=== PATIENT | female | born 1960 | race Caucasian/White ===

== ENCOUNTER 2017-10-27 13:06 | Inpatient (IN) ==
[2017-10-27] MEDS ORDERED: Acetaminophen 325 MG Tablet PO ONE (13:49)
[2017-10-27] MEDS ORDERED: Ciprofloxacin 400 MG/200 ML 400 MG/200 ML PIGGYBACK IV.SIG ONE (13:55)
[2017-10-27 14:27] LABS: Baso % (Auto) 0.2 % (0.0-2.0); Hematocrit 42.1 % (35.0-46.0); Hemoglobin 14.7 gm/dL (11.6-15.3); Lymph # (Auto) 0.5 th/mm3 (1.0-4.8); Lymph % (Auto) 2.5 % (9.0-44.0); Mean Corpuscular HGB Conc 34.9 % (32.0-36.0); Mean Corpuscular Volume 91.6 fL (80.0-100.0); Mean Platelet Volume 9.5 fL (7.0-11.0); Neut % (Auto) 92.3 % (16.0-70.0); Platelet Count 136 th/mm3 (150-450); Red Cell Distribution Width 14.2 % (11.6-17.2); White Blood Count 20.6 th/mm3 (4.0-11.0)
[2017-10-27 14:36] LABS: INR 1.2 Ratio; Prothrombin Time 12.1 sec (9.8-11.6)
--- NOTE | 2017-10-27 14:42 | XR ---
EXAM DATE: 10/27/2017 2:39 PM EDT AGE/SEX: 57 years / Female INDICATIONS: . Fever for 4 days. CLINICAL DATA: This is the patient's initial encounter. Patient reports that signs and symptoms have been present for 4 - 6 days and indicates a pain score of 0/10. MEDICAL/SURGICAL HISTORY: Hypertension. Chronic obstructive pulmonary disease. None. COMPARISON: No prior exams available for comparison. FINDINGS: A single AP view of the chest demonstrates the lungs to be symmetrically aerated without evidence of mass, infiltrate or effusion. The cardiomediastinal contours are unremarkable. Osseous structures a re intact. CONCLUSION: No acute pulmonary infiltrates. Electronically signed by: Agus Caal MD 10/27/2017 2:41 PM EDT
[2017-10-27 14:43] LABS: Lipase 141 U/L (73-393)
[2017-10-27 15:30] LABS: Lymphocytes 4 % (9-44); Metamyelocytes 1 % (0-1); Monocytes 4 % (0-8)
[2017-10-27] MEDS ORDERED: Sod Chloride 0.9% Inj 1,000 ML IV.SIG SCH ×3 (15:30)
--- NOTE | 2017-10-27 15:31 | CT ---
EXAM DATE: 10/27/2017 2:57 PM EDT AGE/SEX: 57 years / Female INDICATIONS: Bilateral lower quadrant pain and vomiting. CLINICAL DATA: This is the patient's initial encounter. Patient reports that signs and symptoms have been present for 3 days and indicates a pain score of 8/10. MEDICAL/SURGICAL HISTORY: Chronic obstructive pulmonary disease. Hypertension. . Bowel surgery . RADIATION DOSE: 26.68 CTDI (mGy) COMPARISON: No prior exams available for comparison. TECHNIQUE: Multiple contiguous axial images were obtained through the abdomen. Images were obtained using multiple row detector helical technique. Using automated exposure control and adjustment of the mA and/or kV according to patient size, radiation dose was kept as low as reasonably achievable to o btain optimal diagnostic quality images. DICOM format image data is available electronically for rev iew and comparison. Lack of IV contrast limits the diagnosis for certain organ pathology. FINDINGS: Lower Lungs: The visualized lower lungs are clear. Liver: The liver has a homogeneous density without space-occupying lesion. There is no dilation of th e biliary tree. The liver is enlarged measuring 22.2 cm. The gallbladder is grossly unremarkable. Spleen: Homogeneous density. The spleen measures 17.1 cm.. Pancreas: Unremarkable without mass or calcification. Kidneys: Normal in size and shape. No evidence of mass or hydronephrosis. No calcified renal stones. Mild nonspecific perinephric edema. Adrenal Glands: Unremarkable. Aorta: The aorta and proximal iliac vessels are grossly unremarkable without aneurysmal dilation. Bowel/Mesentery: The bowel loops are grossly unremarkable.. No inflammatory changes. No free fluid o r loculated fluid collections. Abdominal Wall: There is an anterior abdominal wall hernia containing mesenteric fat. Retroperitoneum: A few nonspecific mildly prominent para-aortic lymph nodes are demonstrated. No def inite pelvic adenopathy. Bladder: Contours are smooth. Reproductive Organs: No abnormal masses or calcifications seen. Inguinal: The inguinal region is unremarkable without evidence of adenopathy. Bony Structures: Degenerative changes. CONCLUSION: 1. There is evidence of hepatosplenomegaly. 2. Mild nonspecific perinephric edema surrounding both kidneys. No hydronephrosis or calcified renal stones. 3. Midline anterior abdominal wall hernia containing mesenteric fat. 4. A few nonspecific mildly prominent para-aortic lymph nodes. Electronically signed by: Agus Caal MD 10/27/2017 3:29 PM EDT
[2017-10-27 15:32] LABS: Platelet Morphology Normal (Normal); RBC Morphology Normal (Normal)
--- NOTE | 2017-10-27 16:28 | ED ---
HPI General Chief Complaint: Abdominal Pain Stated Complaint: fever/vomitting Time Seen by Provider: 10/27/17 13:42 Source: patient, family and old records reviewed Mode of arrival: EMS Limitations: no limitations History of Present Illness HPI narrative: Patient is a 57-year-old female past medical history significant for hypertension, COPD presented complaining of vomiting lower abdominal pain for the past 4 days. She also has history of diverticulitis with resection in 2001. Patient says that her pain got worse today and she also had some diarrhea so she came in. She is also complaining of a headache. MD complaint: abdominal pain Onset (ago): day(s) (4) Pain Consistency: constant Location: LLQ and suprapubic Severity scale (1-10): 10 Quality: stabbing and burning Radiation: none Migration to: no migration Relieving factors: nothing Exacerbating factors: nothing Associated symptoms: nausea, vomiting, diarrhea, fever, chills and dysuria Related Data Home Medications Medication Instructions Recorded Confirmed omeprazole 20 mg PO DAILY 10/27/17 10/27/17 Allergies Allergy/AdvReac Type Severity Reaction Status Date / Time hydrocodone Allergy Nausea Verified 10/27/17 13:35 hydromorphone Allergy Nausea Verified 10/27/17 13:35 morphine Allergy Nausea Verified 10/27/17 13:35 naproxen [From Naprosyn] Allergy Nausea Verified 10/27/17 13:35 oxycodone Allergy Nausea Verified 10/27/17 13:35 Penicillins Allergy Nausea Verified 10/27/17 13:35 Review of Systems ROS Unobtainable All other systems reviewed negative except as stated in HPI Constitutional Denies fever(s) Eyes Denies change in vision ENT Denies headache(s) and Denies nasal congestion Cardiovascular Denies chest pain Respiratory Denies dyspnea Gastrointestinal Reports as per HPI, Reports abdominal pain, Reports cramping, Reports nausea and Reports vomiting Genitourinary Denies difficulty voiding Musculoskeletal Denies myalgias Integumentary/Breasts Denies rash Neurologic Reports headache(s) (6/10 throbbing) Psychiatric Denies depression Endocrine Denies polyuria Hematologic/Lymphatic Denies easy bruising [facility] Medical History Medical History COPD (chronic obstructive pulmonary disease) (Acute) Hypertension (Acute) Surgical History Surgical History History of bowel diversion surgery (Acute) Social History Social History Substance History: No History of Abuse Smoking Status: Former smoker How Often Do You Have a Drink Containing Alcohol: 2 to 4 times a month Recent Travel in [facility] within the Last 8 Weeks: No Recent Out of Country Travel within the Last 8 Weeks: No Immunization History Tetanus Immunization: Unsure Hx Influenza Vaccine This Season: No Exam Const General: cooperative, in distress (Mild from pain) moderate and ill appearing Nutritional Appearance: obese Orientation: alert, awake and oriented x3 HENMT Head: normocephalic and atraumatic Nose: no nasal discharge and no epistaxis Mouth: moist mucous membranes Eyes Sclera: normal sclerae Pupils: PERRL Neck Neck: trachea midline and no JVD Resp Effort & Inspection: no use of accessory muscles Auscultation: clear to auscultation bilaterally Cardio Rate: regular rate Rhythm: regular rhythm Heart Sounds: no murmurs GI Inspection: non-distended, obesity, striae, visible herniation and other ( TENDERNESS TO PALPATION OVER THE LOWER ABDOMEN) Palpation: soft, no hepatosplenomegaly, no pulsatile masses and nontender Skin General: dry skin (warm) Neuro General: alert and awake Cranial Nerves: other Speech: speech normal Motor: no movement abnormalities noted Extrem General: normal to inspection, no clubbing, no cyanosis and no edema Psych Mood: congruent mood Affect: normal affect Judgment: judgment good Course Reevaluation(s) Reevaluation #1: Patient is feeling little better after she was given fluids. Starting Cipro Flagyl for her infection. She did meet sepsis criteria on arrival. She was given IV fluids per sepsis protocol 30 cc/kg Cipro and Flagyl also initiated. CT abdomen pelvis was negative for acute diverticulitis however the patient appears to have UTI. Fever did resolve with medications. She will be admitted for urosepsis. Time: 13:50 Initial Documented Vital Signs Temperature 102.7 F H 10/27/17 13:14 Pulse Rate 130 H 10/27/17 13:14 Respiratory Rate 28 H 10/27/17 13:14 Blood Pressure 225/135 H 10/27/17 13:14 Pulse Oximetry 37 L 10/27/17 13:14 Last Documented Vital Signs Temperature 99.1 F 10/27/17 19:00 Pulse Rate 93 H 10/27/17 16:00 Respiratory Rate 17 10/27/17 19:00 Blood Pressure 134/72 10/27/17 19:00 Pulse Oximetry 97 10/27/17 19:00 Medical Decision Making Lab Data Lab results reviewed: Yes I reviewed the patient's lab results. Result diagrams: 10/27/17 14:00 Lab Results 10/27/17 10/27/17 10/27/17 Range/Units 14:00 14:00 14:00 WBC 20.6 H (4.0-11.0) th/mm3 RBC 4.60 (4.00-5.30) mil/mm3 Hgb 14.7 (11.6-15.3) gm/dL Hct 42.1 (35.0-46.0) % MCV 91.6 (80.0-100.0) fL MCH 32.0 (27.0-34.0) pg MCHC 34.9 (32.0-36.0) % RDW 14.2 (11.6-17.2) % Plt Count 136 L (150-450) th/mm3 MPV 9.5 (7.0-11.0) fL Prelim Diff (Auto) Slide review pending Neut % (Auto) 92.3 H (16.0-70.0) % Lymph % (Auto) 2.5 L (9.0-44.0) % [place] % (Auto) 5.0 (0.0-8.0) % Eos % (Auto) 0.0 (0.0-4.0) % Baso % (Auto) 0.2 (0.0-2.0) % Neut # (Auto) 19.0 H (1.8-7.7) th/mm3 Lymph # (Auto) 0.5 L (1.0-4.8) th/mm3 [place] # (Auto) 1.0 H (0.0-0.9) th/mm3 Eos # (Auto) 0.0 (0.0-0.4) th/mm3 Baso # (Auto) 0.0 (0.0-0.2) th/mm3 WBC Differential Manual diff final Seg Neuts % (Manual) 66 (16-70) % Band Neuts % (Manual) 25 H (0-6) % Lymphocytes % (Manual) 4 L (9-44) % Monocytes % (Manual) 4 (0-8) % Metamyelocytes % (Man) 1 (0-1) % Abs Neuts (Manual) 19.0 H (1.8-7.7) th/mm3 Differential Comment . Platelet Estimate Low L (Normal) Platelet Morphology Normal (Normal) RBC Morphology Normal (Normal) PT 12.1 H (9.8-11.6) sec INR 1.2 Ratio APTT 26.0 (24.3-30.1) sec Lactic Acid (0.4-2.0) mmol/L Troponin I Less than 0.02 L (0.02-0.05) ng/mL Lipase 141 (73-393) U/L Urine Color (Yellw/Straw) Urine Clarity (Clear) Urine pH (5.0-8.5) Ur Specific [place] (1.002-1.035) Urine Protein (Neg-Trace) mg/dL Urine Glucose (UA) (Negative) mg/dL Urine Ketones (Negative) mg/dL Urine Occult Blood (Negative) Urine Nitrate (Negative) Urine Bilirubin (Negative) Urine Urobilinogen (Less than 2) mg/dL Ur Leukocyte Esterase (Negative) Urine RBC (0-3) /hpf Urine WBC (0-5) /hpf Urine WBC Clumps (None) Ur Squamous Epith Cells (0-5) /hpf Urine Bacteria (None) /hpf Micro UA Comment Urine Culture Comments 10/27/17 10/27/17 10/27/17 Range/Units 14:05 16:35 17:20 WBC (4.0-11.0) th/mm3 RBC (4.00-5.30) mil/mm3 Hgb (11.6-15.3) gm/dL Hct (35.0-46.0) % MCV (80.0-100.0) fL MCH (27.0-34.0) pg MCHC (32.0-36.0) % RDW (11.6-17.2) % Plt Count (150-450) th/mm3 MPV (7.0-11.0) fL Prelim Diff (Auto) Neut % (Auto) (16.0-70.0) % Lymph % (Auto) (9.0-44.0) % [place] % (Auto) (0.0-8.0) % Eos % (Auto) (0.0-4.0) % Baso % (Auto) (0.0-2.0) % Neut # (Auto) (1.8-7.7) th/mm3 Lymph # (Auto) (1.0-4.8) th/mm3 [place] # (Auto) (0.0-0.9) th/mm3 Eos # (Auto) (0.0-0.4) th/mm3 Baso # (Auto) (0.0-0.2) th/mm3 WBC Differential Seg Neuts % (Manual) (16-70) % Band Neuts % (Manual) (0-6) % Lymphocytes % (Manual) (9-44) % Monocytes % (Manual) (0-8) % Metamyelocytes % (Man) (0-1) % Abs Neuts (Manual) (1.8-7.7) th/mm3 Differential Comment Platelet Estimate (Normal) Platelet Morphology (Normal) RBC Morphology (Normal) PT (9.8-11.6) sec INR Ratio APTT (24.3-30.1) sec Lactic Acid 2.1 H 1.5 (0.4-2.0) mmol/L Troponin I (0.02-0.05) ng/mL Lipase (73-393) U/L Urine Color [place] (Yellw/Straw) Urine Clarity Turbid H (Clear) Urine pH 5.0 (5.0-8.5) Ur Specific [place] 1.010 (1.002-1.035) Urine Protein 100 H (Neg-Trace) mg/dL Urine Glucose (UA) Negative (Negative) mg/dL Urine Ketones Negative (Negative) mg/dL Urine Occult Blood Moderate H (Negative) Urine Nitrate Negative (Negative) Urine Bilirubin Negative (Negative) Urine Urobilinogen 4 or greater (Less than 2) mg/dL Ur Leukocyte Esterase Large H (Negative) Urine RBC 5 H (0-3) /hpf Urine WBC (0-5) /hpf Urine WBC Clumps Occasional H (None) Ur Squamous Epith Cells 2 (0-5) /hpf Urine Bacteria Moderate H (None) /hpf Micro UA Comment Culture indicated Urine Culture Comments Culture indicated Imaging Data Attestation: I personally reviewed and interpreted this imaging study as follows : Radiologist's impression: Chest X-Ray 10/27/17 13:52 CONCLUSION: No acute pulmonary infiltrates. Abdomen/Pelvis CT 10/27/17 13:53 CONCLUSION: 1. There is evidence of hepatosplenomegaly. 2. Mild nonspecific perinephric edema surrounding both kidneys. No hydronephrosis or calcified renal stones. 3. Midline anterior abdominal wall hernia containing mesenteric fat. 4. A few nonspecific mildly prominent para-aortic lymph nodes. ECG Data Attestation: I personally reviewed and interpreted this ECG as follows: Prior ECG tracings: not available for review Interpretation: Sinus tachycardia with a short NE interval and ventricular rate of [address]-T wave abnormalities. No STEMI. Discharge Plan Discharge Disposition Patient Disposition: 30 Still Patient Discharge Condition Condition: Fair Discharge Details Diagnosis: Acute UTI (urinary tract infection), Severe sepsis Physicians Team ED Provider: Morris Silva Primary Care Provider: UNKNOWN, Rxs /Orders / Referrals /Forms Prescriptions: No Action omeprazole 20 mg Tablet,Delayed Release (Dr/Ec) 20 mg PO DAILY RF: 0 Discharge Interventions Interventions: Vital Signs Last Done: 10/27/17 19:00 Status ED Status: With Doctor
[2017-10-27] MEDS ORDERED: Butalbital/APAP/Caff 50/325/40 MG Tablet PO ONE (16:33)
[2017-10-27 17:57] LABS: Bacteria,Urine Moderate /hpf; Bilirubin,Urine Negative (Negative); Clarity,Urine Turbid (Clear); Color,Urine Amber (Yellw/Straw); Glucose,Urine (UA) Negative (Negative); Leukocyte Esterase,Urine Large (Negative); Nitrite,Urine Negative (Negative); Squamous Epithelial Cell,Urine 2 /hpf (0-5); Urobilinogen,Urine 4 or Greater mg/dL (Less than 2)
[2017-10-27] MEDS ORDERED: Bisacodyl 10 MG Supp RECTAL PRN (20:23)
[2017-10-27] MEDS ORDERED: Temazepam 15 MG Capsule PO PRN (20:23)
--- NOTE | 2017-10-27 20:32 | P.HP ---
History of Present Illness Service: [facility] Primary Care Physician: UNKNOWN History of Present Illness: 57-year-old female with a past medical history significant for COPD and hypertension presents the emergency department with a 3 day history of abdominal pain, nausea/vomiting, fever, headache and tingling with urination. The patient reports that her symptoms worsened in severity to the point where she felt as if she needed to be seen in the emergency department. She denies any chest pain or shortness of breath. No lateralizing signs/symptoms. Inpatient Certification: I certify that the inpatient services were ordered in accordance with Medicare regulations governing the order. This includes certification that hospital inpatient services are reasonable and necessary and in the case of services not specified as inpatient-only under 42 CFR 419.22(n), that they are appropriately provided as inpatient services in accordance to with the 2-midnight benchmark under 43 CFR 412.3(e) Estimated Total Length of Stay (Days): 2 Plans for Post Hospital Care: Not yet determined Review of Systems All other systems reviewed negative except as stated in [facility] - History History Provided By: Patient, Family Member - Medical History Medical History: Medical History (Last Reviewed 10/27/17 @ 19:54 by Morris Silva DO) COPD (chronic obstructive pulmonary disease) Hypertension - Surgical History Surgical History: Surgical History (Last Reviewed 10/27/17 @ 19:54 by Morris Silva DO) History of bowel diversion surgery - Tobacco History Smoking Status: Former smoker - Alcohol History How Often Do You Have a Drink Containing Alcohol: 2 to 4 times a month - Substance Use History Substance History: No History of Abuse - Travel History Recent Travel in the [place] Within the Last 8 Weeks: No Recent Travel Out of the Country Within the Last 8 Weeks: No - Immunization History Tetanus Immunization: Unsure Hx Influenza Vaccine This Season: No Medications and Allergies Active Medications: Active Medications Acetaminophen (Tylenol) 650 mg PO Q4H PRN PRN Reason: Temp > 100.4 Bisacodyl (Dulcolax Supp) 10 mg RECTAL DAILY PRN PRN Reason: SEVERE CONSITIPATION Sodium Chloride (Ns Inj) 1,000 mls @ 0 mls/hr IV.SIG .Q0M BENITO Last Infusion: 10/27/17 16:28 Dose: Infused Sodium Chloride (Ns Inj) 1,000 mls @ 0 mls/hr IV.SIG .Q0M BENITO Last Admin: 10/27/17 16:28 Dose: 999 mls/hr Sodium Chloride (Ns Inj) 1,000 mls @ 0 mls/hr IV.SIG .Q0M BENITO Last Admin: 10/27/17 16:41 Dose: 999 mls/hr Allergies Allergy/AdvReac Type Severity Reaction Status Date / Time hydrocodone Allergy Nausea Verified 10/27/17 13:35 hydromorphone Allergy Nausea Verified 10/27/17 13:35 morphine Allergy Nausea Verified 10/27/17 13:35 naproxen [From Naprosyn] Allergy Nausea Verified 10/27/17 13:35 oxycodone Allergy Nausea Verified 10/27/17 13:35 Penicillins Allergy Nausea Verified 10/27/17 13:35 Home Medications Medication Instructions Recorded Confirmed Type omeprazole 20 mg PO DAILY 10/27/17 10/27/17 History Exam Vital signs: Vital Signs 10/27/17 13:14 10/27/17 13:37 10/27/17 15:23 Temperature 102.7 F H 99.7 F H Pulse Rate 130 H 126 H 109 H Respiratory Rate 28 H 18 20 Blood Pressure 225/135 H 129/70 Pulse Oximetry 37 L 96 97 10/27/17 16:00 10/27/17 19:00 10/27/17 19:51 Temperature 99.1 F Pulse Rate 93 H Respiratory Rate 16 17 Blood Pressure 111/68 134/72 Pulse Oximetry 99 97 97 Intake & Output 10/27/17 10/27/17 10/28/17 06:59 18:59 06:59 Intake Total 1300 / 1300 Balance 1300 / 1300 Weight 111.584 kg Intake: IV 1300 / 1300 Cipro 400 MG/200 ML Inj 400 mg 200 / 200 In 200 ml @ 200 mls/hr IV.SIG ONCE ONE Rx#:[id number] NS Inj 1,000 ML @ Wide Open IV. 1000 / 1000 SIG .Q0M BENITO Rx#:[id number] Flagyl 500 MG Inj 100 ML @ 100 100 / 100 mls/hr IV.SIG STAT STA Rx#: [id number] Narrative: Gen.: No acute distress Head: Normocephalic. Atraumatic. EENT: Pupils equal round and reactive to light. Nose without drainage. Airway intact. Throat without injection. Cardiovascular: Regular rate and rhythm. No murmurs, rubs or gallops. Respiratory: Lungs clear to auscultation bilaterally. No wheezes or rhonchi. Abdomen: Soft, diffusely tender to palpation in the pelvic region, nondistended. No peritoneal signs. Musculoskeletal: No gross deformities. No edema. Skin: No obvious rashes or erythema. Neuro: Sensory and motor grossly intact. Cranial nerves II through XII grossly intact. Psych: Appropriate mood and affect Results - Labs CBC & Chem 7: 10/27/17 14:00 Labs: Laboratory Results - last 24 hr 10/27/17 10/27/17 10/27/17 14:00 14:00 14:00 WBC 20.6 H RBC 4.60 Hgb 14.7 Hct 42.1 MCV 91.6 MCH 32.0 MCHC 34.9 RDW 14.2 Plt Count 136 L MPV 9.5 Prelim Diff (Auto) Slide review pending Neut % (Auto) 92.3 H Lymph % (Auto) 2.5 L [place] % (Auto) 5.0 Eos % (Auto) 0.0 Baso % (Auto) 0.2 Neut # (Auto) 19.0 H Lymph # (Auto) 0.5 L [place] # (Auto) 1.0 H Eos # (Auto) 0.0 Baso # (Auto) 0.0 WBC Differential Manual diff final Seg Neuts % (Manual) 66 Band Neuts % (Manual) 25 H Lymphocytes % (Manual) 4 L Monocytes % (Manual) 4 Metamyelocytes % (Man) 1 Abs Neuts (Manual) 19.0 H Differential Comment . Platelet Estimate Low L Platelet Morphology Normal RBC Morphology Normal PT 12.1 H INR 1.2 APTT 26.0 Lactic Acid Troponin I Less than 0.02 L Lipase 141 Urine Color Urine Clarity Urine pH Ur Specific [place] Urine Protein Urine Glucose (UA) Urine Ketones Urine Occult Blood Urine Nitrate Urine Bilirubin Urine Urobilinogen Ur Leukocyte Esterase Urine RBC Urine WBC Urine WBC Clumps Ur Squamous Epith Cells Urine Bacteria Micro UA Comment Urine Culture Comments 10/27/17 10/27/17 10/27/17 14:05 16:35 17:20 WBC RBC Hgb Hct MCV MCH MCHC RDW Plt Count MPV Prelim Diff (Auto) Neut % (Auto) Lymph % (Auto) [place] % (Auto) Eos % (Auto) Baso % (Auto) Neut # (Auto) Lymph # (Auto) [place] # (Auto) Eos # (Auto) Baso # (Auto) WBC Differential Seg Neuts % (Manual) Band Neuts % (Manual) Lymphocytes % (Manual) Monocytes % (Manual) Metamyelocytes % (Man) Abs Neuts (Manual) Differential Comment Platelet Estimate Platelet Morphology RBC Morphology PT INR APTT Lactic Acid 2.1 H 1.5 Troponin I Lipase Urine Color [place] Urine Clarity Turbid H Urine pH 5.0 Ur Specific [place] 1.010 Urine Protein 100 H Urine Glucose (UA) Negative Urine Ketones Negative Urine Occult Blood Moderate H Urine Nitrate Negative Urine Bilirubin Negative Urine Urobilinogen 4 or greater Ur Leukocyte Esterase Large H Urine RBC 5 H Urine WBC Urine WBC Clumps Occasional H Ur Squamous Epith Cells 2 Urine Bacteria Moderate H Micro UA Comment Culture indicated Urine Culture Comments Culture indicated - Imaging Impressions Chest X-Ray 10/27/17 13:52 CONCLUSION: No acute pulmonary infiltrates. Abdomen/Pelvis CT 10/27/17 13:53 CONCLUSION: 1. There is evidence of hepatosplenomegaly. 2. Mild nonspecific perinephric edema surrounding both kidneys. No hydronephrosis or calcified renal stones. 3. Midline anterior abdominal wall hernia containing mesenteric fat. 4. A few nonspecific mildly prominent para-aortic lymph nodes. Caprini VTE Risk Assessment Caprini VTE Risk Assessment: No/Low Risk (score <= 1) Caprini Risk Assessment Model: Point Value = 1 Point Value = 2 Point Value = 3 Point Value = 5 Age 41-60 Minor surgery BMI > 25 kg/m2 Swollen legs Varicose veins or History of unexplained or recurrent spontaneous Oral contraceptives or hormone replacement Sepsis (< 1 month) Serious lung disease, including pneumonia (< 1 month) Abnormal pulmonary function Acute myocardial infarction Congestive heart failure (< 1 month) History of inflammatory bowel disease Medical patient at bed rest Age 61-74 Arthroscopic surgery Major open surgery (> 45 min) Laparoscopic surgery (> 45 min) Malignancy Confined to bed (> 72 hours) Immobilizing plaster cast Central venous access Age >= 75 History of VTE Family history of VTE Factor V Leiden Prothrombin [id number] Lupus anticoagulant Anticardiolipin antibodies Elevated serum homocysteine Heparin-induced thrombocytopenia Other congenital or acquired thrombophilia Stroke (< 1 month) Elective arthroplasty Hip, pelvis, or leg fracture Acute spinal cord injury (< 1 month) Prophylaxis Regimen: Total Risk Factor Score Risk Level Prophylaxis Regimen 0-1 Low Early ambulation 2 Moderate Order ONE of the following: *Sequential Compression Device (SCD) *Heparin 5000 units SQ BID 3-4 Higher Order ONE of the following medications: *Heparin 5000 units SQ TID *Enoxaparin/Lovenox 40 mg SQ daily (WT < 150 kg, CrCl > 30 mL/min) *Enoxaparin/Lovenox 30 mg SQ daily (WT < 150 kg, CrCl > 10-29 mL/min) *Enoxaparin/Lovenox 30 mg SQ BID (WT < 150 kg, CrCl > 30 mL/min) AND/OR *Sequential Compression Device (SCD) 5 or more Highest Order ONE of the following medications: *Heparin 5000 units SQ TID (Preferred with Epidurals) *Enoxaparin/Lovenox 40 mg SQ daily (WT < 150 kg, CrCl > 30 mL/min) *Enoxaparin/Lovenox 30 mg SQ daily (WT < 150 kg, CrCl > 10-29 mL/min) *Enoxaparin/Lovenox 30 mg SQ BID (WT < 150 kg, CrCl > 30 mL/min) AND *Sequential Compression Device (SCD) Assessment and Plan - Plan Assessment/plan: 1. Urosepsis Patient with leukocytosis, fever, tachycardia and tachypnea UA consistent with urinary tract infection Blood, urine cultures pending Chest x-ray without acute process, personally reviewed CT of the abdomen/pelvis without acute process, personally reviewed Rocephin IV fluids Follow urine cultures and tailor antibiotics 2. COPD Duo nebs as needed 3. Hypertension Continue home medication once reconciled Clonidine as needed FEN N.p.o. Electrolytes: Pending, monitor and replete as needed NS at 100 cc/hour
[2017-10-27] MEDS: Sod Chloride 0.9% Inj 1,000 ML IV.CONT SCH (22:11)
[2017-10-27] MEDS: Senna/Docusate Sodium 8.6/50 MG Tablet PO SCH (22:20)
[2017-10-27] MEDS: Butalbital/APAP/Caff 50/325/40 MG Tablet PO PRN (22:33)
[2017-10-27 23:40] LABS: Alanine Aminotransferase 60 U/L (10-53); Alkaline Phosphatase 158 U/L (45-117); Anion Gap 11 meq/L (5-15); Aspartate Aminotransferase 52 U/L (15-37); Blood Urea Nitrogen 13 mg/dL (7-18); Calcium 8.7 mg/dL (8.5-10.1); Carbon Dioxide 22.3 meq/L (21.0-32.0); Chloride 100 meq/L (98-107); Glomerular Filtration Rate 45 mL/min (>89); Glucose,Random 128 mg/dL (74-106); Potassium 3.5 meq/L (3.5-5.1); Sodium 133 meq/L (136-145); Total Protein 8.1 g/dL (6.4-8.2)
[2017-10-28 04:42] LABS: Baso % (Auto) 0.2 % (0.0-2.0); Eos % (Auto) 0.1 % (0.0-4.0); Hematocrit 36.4 % (35.0-46.0); Hemoglobin 12.5 gm/dL (11.6-15.3); Lymph # (Auto) 0.7 th/mm3 (1.0-4.8); Lymph % (Auto) 4.3 % (9.0-44.0); Mean Corpuscular HGB Conc 34.2 % (32.0-36.0); Mean Corpuscular Hemoglobin 31.9 pg (27.0-34.0); Mean Corpuscular Volume 93.5 fL (80.0-100.0); Mean Platelet Volume 9.2 fL (7.0-11.0); Mono # (Auto) 1.1 th/mm3 (0.0-0.9); Mono % (Auto) 7.2 % (0.0-8.0); Neut # (Auto) 13.5 th/mm3 (1.8-7.7); Neut % (Auto) 88.2 % (16.0-70.0); Platelet Count 65 th/mm3 (150-450); White Blood Count 15.3 th/mm3 (4.0-11.0)
[2017-10-28 04:47] LABS: Calcium 7.7 mg/dL (8.5-10.1); Carbon Dioxide 21.5 meq/L (21.0-32.0); Potassium 3.1 meq/L (3.5-5.1)
[2017-10-28] MEDS: Acetaminophen 325 MG Tablet PO PRN ×3 (05:00→22:05)
[2017-10-28] MEDS: Butalbital/APAP/Caff 50/325/40 MG Tablet PO PRN ×2 (05:00→16:57)
[2017-10-28 06:13] LABS: Platelet Morphology Normal (Normal)
[2017-10-28] MEDS: Pantoprazole Sodium 20 MG DR Tablet PO SCH (08:48)
[2017-10-28] MEDS: Senna/Docusate Sodium 8.6/50 MG Tablet PO SCH (08:48)
[2017-10-28] MEDS: Sod Chloride 0.9% Inj 1,000 ML IV.CONT SCH (08:48)
--- NOTE | 2017-10-28 09:27 | P.PNIM ---
Subjective Interval history: Mrs. Alvarez was febrile to 100.8F overnight. Patient reports that she still feels poorly; she reports lower abdominal pain and headache but denies back pain. Patient repors that she is breathing well but sometimes has wheezing/ shortness of breath and takes Breo at home. Patient states that she is urinating some and has noticed some blood in her urine. Physical Exam Vital signs: Vital Signs 10/27/17 13:14 10/27/17 13:37 10/27/17 15:23 Temperature 102.7 F H 99.7 F H Pulse Rate 130 H 126 H 109 H Respiratory Rate 28 H 18 20 Blood Pressure 225/135 H 129/70 Pulse Oximetry 37 L 96 97 10/27/17 16:00 10/27/17 19:00 10/27/17 19:51 Temperature 99.1 F Pulse Rate 93 H Respiratory Rate 16 17 Blood Pressure 111/68 134/72 Pulse Oximetry 99 97 97 10/27/17 21:00 10/28/17 00:00 10/28/17 04:00 Temperature 99.7 F H 99.9 F H 100.8 F H Pulse Rate 105 H 99 H 100 H Respiratory Rate 20 20 20 Blood Pressure 128/52 L 124/56 L 134/66 Pulse Oximetry 95 95 95 10/28/17 08:00 Temperature 98.2 F Pulse Rate 88 Respiratory Rate 16 Blood Pressure 116/67 Pulse Oximetry 93 L Intake & Output 10/27/17 10/28/17 10/28/17 18:59 06:59 18:59 Intake Total 1300 / 1300 580 / 580 1000 / 1000 Balance 1300 / 1300 580 / 580 1000 / 1000 Weight 111.584 kg 114.5 kg Intake: IV 1300 / 1300 100 / 100 1000 / 1000 NS Inj 1,000 ML @ 100 mls/hr IV 1000 / 1000 .CONT .Q10H BEN[facility]O Rx#:[id number] Cipro 400 MG/200 ML Inj 400 mg 200 / 200 In 200 ml @ 200 mls/hr IV.SIG ONCE ONE Rx#:[id number] NS Inj 1,000 ML @ Wide Open IV. 1000 / 1000 SIG .Q0M [facility]EN[facility] Rx#:[id number] Rocephin Inj 1,000 MG In NS Inj 100 / 100 100 ML @ 200 mls/hr IV.SIG Q24H [facility] Rx#:[id number] Flagyl 500 MG Inj 100 ML @ 100 100 / 100 mls/hr IV.SIG STAT STA Rx#: [id number] Oral 480 / 480 Other: # Voids 3 Narrative: General: No distress but appears uncomfortable Skin: NO visible lesions CV: HR ~100; normal rate and rhythm Resp:Bilateral mild wheezing. NOrmal rate; no visible distress Back: No CVA tenderness Abdomen: Bilateral lower quadrant tenderness to palpation Neuro: Grossly normal CN; grossly normal peripheral motor/sensory function MSK: Grossly normal ROM and motor function Results - Labs CBC & Chem 7: 10/28/17 03:59 10/28/17 16:35 Laboratory Results - last 24 hr 10/27/17 10/27/17 10/27/17 14:00 14:00 14:00 WBC 20.6 H RBC 4.60 Hgb 14.7 Hct 42.1 MCV 91.6 MCH 32.0 MCHC 34.9 RDW 14.2 Plt Count 136 L MPV 9.5 Prelim Diff (Auto) Slide review pending Neut % (Auto) 92.3 H Lymph % (Auto) 2.5 L [place] % (Auto) 5.0 Eos % (Auto) 0.0 Baso % (Auto) 0.2 Neut # (Auto) 19.0 H Lymph # (Auto) 0.5 L [place] # (Auto) 1.0 H Eos # (Auto) 0.0 Baso # (Auto) 0.0 WBC Differential Manual diff final Diff Scan Seg Neuts % (Manual) 66 Band Neuts % (Manual) 25 H Lymphocytes % (Manual) 4 L Monocytes % (Manual) 4 Metamyelocytes % (Man) 1 Abs Neuts (Manual) 19.0 H Differential Comment . Platelet Estimate Low L Platelet Morphology Normal RBC Morphology Normal PT 12.1 H INR 1.2 APTT 26.0 Sodium Potassium Chloride Carbon Dioxide Anion Gap BUN Creatinine Estimated GFR Random Glucose Lactic Acid Calcium Total Bilirubin AST ALT Alkaline Phosphatase Troponin I Less than 0.02 L Total Protein Albumin Lipase 141 Urine Color Urine Clarity Urine pH Ur Specific [place] Urine Protein Urine Glucose (UA) Urine Ketones Urine Occult Blood Urine Nitrate Urine Bilirubin Urine Urobilinogen Ur Leukocyte Esterase Urine RBC Urine WBC Urine WBC Clumps Ur Squamous Epith Cells Urine Bacteria Micro UA Comment Urine Culture Comments 10/27/17 10/27/17 10/27/17 14:00 14:05 16:35 WBC RBC Hgb Hct MCV MCH MCHC RDW Plt Count MPV Prelim Diff (Auto) Neut % (Auto) Lymph % (Auto) [place] % (Auto) Eos % (Auto) Baso % (Auto) Neut # (Auto) Lymph # (Auto) [place] # (Auto) Eos # (Auto) Baso # (Auto) WBC Differential Diff Scan Seg Neuts % (Manual) Band Neuts % (Manual) Lymphocytes % (Manual) Monocytes % (Manual) Metamyelocytes % (Man) Abs Neuts (Manual) Differential Comment Platelet Estimate Platelet Morphology RBC Morphology PT INR APTT Sodium 133 L Potassium 3.5 Chloride 100 Carbon Dioxide 22.3 Anion Gap 11 BUN 13 Creatinine 1.24 H Estimated GFR 45 L Random Glucose 128 H Lactic Acid 2.1 H Calcium 8.7 Total Bilirubin 2.2 H AST 52 H ALT 60 H Alkaline Phosphatase 158 H Troponin I Total Protein 8.1 Albumin 3.0 L Lipase Urine Color [place] Urine Clarity Turbid H Urine pH 5.0 Ur Specific [place] 1.010 Urine Protein 100 H Urine Glucose (UA) Negative Urine Ketones Negative Urine Occult Blood Moderate H Urine Nitrate Negative Urine Bilirubin Negative Urine Urobilinogen 4 or greater Ur Leukocyte Esterase Large H Urine RBC 5 H Urine WBC Urine WBC Clumps Occasional H Ur Squamous Epith Cells 2 Urine Bacteria Moderate H Micro UA Comment Culture indicated Urine Culture Comments Culture indicated 10/27/17 10/28/17 10/28/17 17:20 03:59 03:59 WBC 15.3 H RBC 3.90 L Hgb 12.5 D Hct 36.4 MCV 93.5 MCH 31.9 MCHC 34.2 RDW 14.0 Plt Count 65 L D MPV 9.2 Prelim Diff (Auto) Slide review pending Neut % (Auto) 88.2 H Lymph % (Auto) 4.3 L [place] % (Auto) 7.2 Eos % (Auto) 0.1 Baso % (Auto) 0.2 Neut # (Auto) 13.5 H Lymph # (Auto) 0.7 L [place] # (Auto) 1.1 H Eos # (Auto) 0.0 Baso # (Auto) 0.0 WBC Differential . Diff Scan Auto diff confirmed Seg Neuts % (Manual) Band Neuts % (Manual) Lymphocytes % (Manual) Monocytes % (Manual) Metamyelocytes % (Man) Abs Neuts (Manual) Differential Comment . Platelet Estimate Low L Platelet Morphology Normal RBC Morphology PT INR APTT Sodium 137 Potassium 3.1 L Chloride 105 Carbon Dioxide 21.5 Anion Gap 11 BUN 14 Creatinine 1.14 H Estimated GFR 49 L Random Glucose 137 H Lactic Acid 1.5 Calcium 7.7 L D Total Bilirubin AST ALT Alkaline Phosphatase Troponin I Total Protein Albumin Lipase Urine Color Urine Clarity Urine pH Ur Specific [place] Urine Protein Urine Glucose (UA) Urine Ketones Urine Occult Blood Urine Nitrate Urine Bilirubin Urine Urobilinogen Ur Leukocyte Esterase Urine RBC Urine WBC Urine WBC Clumps Ur Squamous Epith Cells Urine Bacteria Micro UA Comment Urine Culture Comments Microbiology 10/27/17 14:05 Blood - Peripheral Aerobic Blood Culture - Preliminary gram negative rods 10/27/17 14:05 Blood - Peripheral Anaerobic Blood Culture - Preliminary gram negative rods 10/27/17 14:00 Blood - Peripheral Aerobic Blood Culture - Preliminary gram negative rods 10/27/17 14:00 Blood - Peripheral Anaerobic Blood Culture - Preliminary gram negative rods 10/27/17 14:20 Nasal Wash Influenza Types A,B Antigen - Final Negative for FLU A and B antigen Infection due to influenza A or B cannot be ruled out since the antigen present in the sample may be below the detection limit of the test. - Imaging Impressions Chest X-Ray 10/27/17 13:52 CONCLUSION: No acute pulmonary infiltrates. Abdomen/Pelvis CT 10/27/17 13:53 CONCLUSION: 1. There is evidence of hepatosplenomegaly. 2. Mild nonspecific perinephric edema surrounding both kidneys. No hydronephrosis or calcified renal stones. 3. Midline anterior abdominal wall hernia containing mesenteric fat. 4. A few nonspecific mildly prominent para-aortic lymph nodes. Assessment and Plan - Assessment (1) Sepsis Code(s): A41.9 - Sepsis, unspecified organism Status: Acute (2) Gram-negative bacteremia Code(s): R78.81 - Bacteremia Status: Acute (3) COPD (chronic obstructive pulmonary disease) Code(s): J44.9 - Chronic obstructive pulmonary disease, unspecified Status: Acute (4) Acute UTI (urinary tract infection) Code(s): N39.0 - Urinary tract infection, site not specified Status: Acute - Plan Sepsis Impression: T102.7, HR 130, RR 28, BP 225/135 on admission. Lactic acid 2.1-> 1.5 Strong suspicion for UT source UA- large leuk esterase, nitrates negtive, WBC innumerable CT on admission 10/27- Mild nonspecific perinephric edema surrounding both kidneys w/o hydronephrosis or calcified renal stones. Some hepatosplenomegaly. Midline abdominal wall hernia w/ mesenteric fat. Some nonspecific mildly prominent para-aortic lymph nodes CXR unremarkable Cultures (10/27) : Blood- Gram - rods; Urine- gram - rods 10/28- persistent fevers to 101-103F. Patient feels poorly -Repeat Lactic acid ordered: 1.5 -> 2.1 -Antibiotic therapy -Initially given dose of Ciprofloxacin and Flagyl in ED; transitioned to Rocephin 1gm daily on admission -Will broaden from Rocephin to Aztreonam/Gentamicin per ID urosepsis protocol (PCN severe allergy preventing Zosyn) -Will consult ID for assistance -Continue IVF; will increase to 150ml/hr -Will monitor blood/urine cultures for susceptibilities -Will check UT US tomorrow COPD Impression: Patient takes Breo at home. Some wheezing on admission -Will give scheduled Duonebs HTN Impression: Initial hypertensive urgency; BP has since improved -Will continue PRN clonidine -Will plan to discuss home medications further if persistently elevated DVT PPX - SCD's -Will plan to initiate chemical PPX w/ Heparin Discharge Planning: Planned discharge home after treatment for sepsis and transition to oral antibiotics
[2017-10-28 17:47] LABS: Alanine Aminotransferase 47 U/L (10-53); Albumin 2.2 g/dL (3.4-5.0); Alkaline Phosphatase 140 U/L (45-117); Anion Gap 9 meq/L (5-15); Aspartate Aminotransferase 44 U/L (15-37); Blood Urea Nitrogen 13 mg/dL (7-18); Calcium 7.7 mg/dL (8.5-10.1); Carbon Dioxide 21.9 meq/L (21.0-32.0); Chloride 106 meq/L (98-107); Glomerular Filtration Rate 47 mL/min (>89); Glucose,Random 133 mg/dL (74-106); Sodium 137 meq/L (136-145); Total Protein 6.3 g/dL (6.4-8.2)
[2017-10-28 17:49] LABS: Potassium 2.9 meq/L (3.5-5.1)
[2017-10-28] MEDS ORDERED: Gentamicin Consult Pharmacy OTHER ONE (18:14)
[2017-10-28] MEDS ORDERED: Vancomycin Consult Pharmacy OTHER ONE (18:14)
--- NOTE | 2017-10-28 18:44 | ECG ---
Date Performed: 10/27/2017 Time Performed: 13:40:37 PTAGE: 57 years EKG: SINUS TACHYCARDIA WITH SHORT NM INTERVAL ABNORMAL RHYTHM ECG NO PREVIOUS TRACING DOCTOR: Mike Maciel Interpretating Date/Time 10/28/2017 18:41:58
[2017-10-28] MEDS ORDERED: SODIUM CHLOR 0.9% IV.SIG ONE (22:00)
[2017-10-28] MEDS ORDERED: GENTAMICIN IV.SIG ONE (22:00)
[2017-10-28] MEDS ORDERED: Potassium Chloride Inj 20 MEQ in Sod Chloride 0.9% Inj 1,000 ML IV.CONT SCH (22:30)
[2017-10-28] MEDS ORDERED: Vancomycin Inj 1,500 MG in Sodium Chlor 0.9% Inj 500 ML IV.SIG SCH (23:00)
[2017-10-29] MEDS: Senna/Docusate Sodium 8.6/50 MG Tablet PO SCH ×3 (00:57→21:58)
--- NOTE | 2017-10-29 01:42 | P.PNADD ---
Addendum to Inpatient Note Reason for Addendum: Additional Documentation Additional information: IVÁN NOTE Iván Called at 01:30 AM on 10/29 and resident team arrived promptly. We were introduced to a 57-year-old female, admitted for urosepsis and COPD, that is experiencing respiratory distress. She has been febrile over the day and is now acutely short of breath. She is visibly in distress. Her oxygen sats have been dropping to the high 80s but with supplementation of nasal cannula her oxygen sat is 95%. The patient states that she feels very bad and she has never felt like this before. She denies any chest pain. Physical exam: Vitals: O2 sat 95%, BP within normal limits, heart rate 156 General: In acute distress, eyes are wide, patient is in respiratory distress, using accessory muscles for breathing Cardiac: Regular rate and rhythm, normal S1 and S2 Respiratory: Clear and equal bilaterally on anterior auscultation Abdominal: Soft, nontender Assessment/plan: 57-year-old female, admitted for urosepsis and COPD, that is experiencing respiratory distress, tachycardia and fever. Continue oxygen supplementation Admit to ICU for respiratory distress, consult rotary filter operator Stat chest x-ray, EKG, ABG Stat CTA if tolerated, will defer to ICU rotary filter operator
--- NOTE | 2017-10-29 02:04 | XR ---
EXAM DATE: 10/29/2017 1:50 AM EDT AGE/SEX: 57 years / Female INDICATIONS: Short of breath. CLINICAL DATA: This is the patient's initial encounter. Patient reports that signs and symptoms have been present for 1 day and indicates a pain score of 0/10. MEDICAL/SURGICAL HISTORY: . Hypertension. Chronic obstructive pulmonary disease. None. COMPARISON: [facility] – [place], CHEST 1V SINGLE AP, 10/27/2017. . FINDINGS: A single AP view of the chest demonstrates the lungs to be symmetrically aerated without evidence of mass, infiltrate or effusion. The cardiomediastinal contours are unremarkable. Osseous structures a re intact. CONCLUSION: No evidence of acute cardiopulmonary disease. Electronically signed by: Evan Mtz MD 10/29/2017 2:02 AM EDT
[2017-10-29 02:09] LABS: ABG Base Excess -6.5 mmol/L (-2-2); ABG PCO2 27 mmHg (38-42); ABG PO2 282 mmHg (61-120)
--- NOTE | 2017-10-29 03:06 | P.CONCC ---
History of Present Illness Service: Critical care medicine Consult date: 10/29/17 Requesting Physician: Leanne Rojas Reason for Consult: Respiratory distress hypoxic Primary Care Provider: UNKNOWN History of Present Illness: 57-year-old female with past medical history of COPD and hypertension who presented to [facility] emergency department with fever, nausea , vomiting, dysuria and suprapubic pain. She was found to have a UTI and GNR bacteremia. CT abdomen demonstrated no evidence of urinary obstruction. She was admitted to [place] hospitalist. She has received aztreonam and a dose of gentamicin. Keila Minor was called after she developed respiratory distress with sats in the low 80s on nasal cannula, tachypnea and tachycardia in the 130s. Iván RN says she was agitated, anxious, cyanotic appearing. She was transferred emergently to [facility]. CTA PA has been ordered. She denies prior history of UTI. Although she has been on outpatient antibiotics intermittently for upper respiratory infections she denies recent antibiotics. No recent hospitalization. Denies recent Flores or urologic intervention. Review of Systems Constitutional: Reports chills, Reports fever(s) PMFSH - History History Provided By: Patient - Medical History Medical History: Medical History (Last Updated 10/29/17 @ 08:53 by Ifeoma Gleason MD) COPD (chronic obstructive pulmonary disease) HX: benign breast biopsy Hypertension - Surgical History Surgical History: Surgical History (Last Updated 10/29/17 @ 08:52 by Ifeoma Gleason MD) History of partial colectomy - Family History Family History: Family History (Last Updated 10/29/17 @ 08:54 by Ifeoma Gleason MD) Father CAD (coronary artery disease) Mother Diabetes - Tobacco History Second Hand Smoke Exposure: No Tobacco Use In Past 30 Days: No Smoking Status: Former smoker Tobacco Type: Cigarettes - Alcohol History How Often Do You Have a Drink Containing Alcohol: 2 to 4 times a month - Substance Use History Substance History: No History of Abuse - Travel History Recent Travel in the [place] Within the Last 8 Weeks: No Recent Travel Out of the Country Within the Last 8 Weeks: No - Immunization History Tetanus Immunization: Unsure Hx Influenza Vaccine This Season: No Medications and Allergies Allergies Allergy/AdvReac Type Severity Reaction Status Date / Time Penicillins Allergy Severe Anaphylaxis Verified 10/28/17 18:08 hydrocodone Allergy Nausea Verified 10/27/17 13:35 hydromorphone Allergy Nausea Verified 10/27/17 13:35 meperidine [From Demerol] Allergy Nausea/Vomiting, Verified 10/27/17 21:35 "vein lifting" morphine Allergy Nausea Verified 10/27/17 13:35 naproxen [From Naprosyn] Allergy Nausea Verified 10/27/17 13:35 oxycodone Allergy Nausea Verified 10/27/17 13:35 Home Medications Medication Instructions Recorded Confirmed Type omeprazole 20 mg PO DAILY 10/27/17 10/27/17 History Active Medications: Active Medications Acetaminophen (Tylenol) 650 mg PO Q4H PRN PRN Reason: Temp > 100.4 Last Admin: 10/28/17 22:05 Dose: 650 mg Acetaminophen/Butalbital/Caffeine (Fioricet 50-325-40) 1 tab PO Q6H PRN PRN Reason: HEADACHE Last Admin: 10/28/17 16:57 Dose: 1 tab Al Hydroxide/Mg Hydroxide (Milk Of Jacklyn Liq) 30 ml PO Q12H PRN PRN Reason: Mild Constipation Albuterol (Duoneb Neb (Elise)) 1 ampul NEB Q6HR WHILE AWAKE NEB ELISE Last Admin: 10/28/17 13:11 Dose: 1 ampul Albuterol (Albuterol Neb (Prn)) 2.5 mg NEB Q2HR NEB PRN PRN Reason: WHEEZING Albuterol (Duoneb Neb (Elise)) 1 ampul NEB Q6HR NEB ELISE Bisacodyl (Dulcolax Supp) 10 mg RECTAL DAILY PRN PRN Reason: SEVERE CONSITIPATION Clonidine HCl (Catapres) 0.1 mg PO Q6H PRN PRN Reason: SBP>160, DBP>90 Aztreonam 1,000 mg/ Sodium (Chloride) 100 mls @ 200 mls/hr IV.SIG Q12H ELISE Last Infusion: 10/28/17 22:35 Dose: Infused Vancomycin HCl 1,500 mg/ (Sodium Chloride) 515 mls @ 250 mls/hr IV.SIG Q12H ELISE Last Admin: 10/29/17 00:08 Dose: 250 mls/hr Potassium Chloride/Sodium Chloride (Ns + Kcl 20 Meq Inj) 1,000 mls @ 150 mls/ hr IV.CONT .Q6H40M ELISE Last Admin: 10/28/17 22:33 Dose: 150 mls/hr Acetaminophen (Ofirmev Inj) 1,000 mg in 100 mls @ 400 mls/hr IV.SIG NOW PRN PRN Reason: temp >100.4 Lactulose (Lactulose Liq) 30 ml PO DAILY PRN PRN Reason: SEVERE CONSITIPATION Ondansetron HCl (Zofran Odt) 4 mg PO Q6H PRN PRN Reason: NAUSEA OR VOMITING Pantoprazole Sodium (Protonix) 20 mg PO DAILY PENDING SALE TO [facility] Last Admin: 10/28/17 08:48 Dose: 20 mg Pharmacy Profile Note (Gentamicin Consult Pharmacy) 1 each OTHER [facility] Pharmacy Profile Note (Vancomycin Consult Pharmacy) 1 each OTHER [facility] Senna/Docusate Sodium (Kylie-Colace) 1 tab PO BID PENDING SALE TO [facility] Last Admin: 10/29/17 00:57 Dose: Not Given Sennosides (Senokot) 17.2 mg PO Q12H PRN PRN Reason: Moderate Constipation Temazepam (Restoril) 15 mg PO HS PRN PRN Reason: INSOMNIA Physical Exam Vital signs: Vital Signs 10/28/17 04:00 10/28/17 08:00 10/28/17 12:00 Temperature 100.8 F H 98.2 F 100.1 F H Pulse Rate 100 H 88 97 H Respiratory Rate 20 16 17 Blood Pressure 134/66 116/67 127/72 Pulse Oximetry 95 93 L 93 L 10/28/17 13:13 10/28/17 16:00 10/28/17 16:56 Temperature 103.0 F H 101.0 F H Pulse Rate 120 H 106 H Respiratory Rate 16 17 Blood Pressure 142/74 H Pulse Oximetry 93 L 10/28/17 17:59 10/28/17 20:00 10/29/17 01:05 Temperature 99.0 F 102.6 F H 99.2 F Pulse Rate 109 H 150 H Respiratory Rate 17 22 Blood Pressure 140/63 108/56 L Pulse Oximetry 95 81 L 10/29/17 01:15 Temperature Pulse Rate Respiratory Rate Blood Pressure Pulse Oximetry 92 L Intake & Output 10/28/17 10/28/17 10/29/17 06:59 18:59 06:59 Intake Total 580 / 580 1000 / 1000 1209.625 / 1209.625 Balance 580 / 580 1000 / 1000 1209.625 / 1209.625 Weight 114.5 kg Intake: IV 100 / 100 1000 / 1000 1209.625 / 1209.625 NS Inj 1,000 ML @ 100 mls/hr IV 1000 / 1000 1000 / 1000 .CONT .Q10H PENDING SALE TO [facility] Rx#:[id number] Azactam Inj 1,000 MG In NS Inj 100 / 100 100 ML @ 200 mls/hr IV.SIG Q12H ELISE Rx#:[id number] Gentamicin Inj 385 MG In NS Inj 109.625 / 109.625 100 ML @ 100 mls/hr IV.SIG ONCE ONE Rx#:[id number] Rocephin Inj 1,000 MG In NS Inj 100 / 100 100 ML @ 200 mls/hr IV.SIG Q24H ELISE Rx#:[id number] Oral 480 / 480 Other: # Voids 3 Narrative: GENERAL: Well-nourished, well-developed obese female patient who is sitting in ISC bed. SKIN: Warm and dry. HEAD: Atraumatic. Normocephalic. EYES: Pupils equal and round, reactive.. No scleral icterus. No injection or drainage. ENT: No nasal bleeding or discharge. Mucous membranes pink and moist. NECK: Trachea midline. No JVD. CARDIOVASCULAR: Tachycardic, sinus tach on monitor with rate in 130s. No murmurs rubs or gallops. RESPIRATORY: Tachypneic but no accessory muscle use.. Clear to auscultation with no wheezes rales or rhonchi. Breath sounds equal bilaterally. GASTROINTESTINAL: Abdomen soft, suprapubic tenderness without rebound or guarding.. Bowel sounds present. No costovertebral angle tenderness. MUSCULOSKELETAL: Extremities without clubbing, cyanosis, or edema. No obvious deformities. NEUROLOGICAL: Awake and alert. No obvious cranial nerve deficits. Motor grossly within normal limits. Normal speech. Oriented 3. Assessment and Plan - Assessment and Plan Plan: NEURO: Headache Fioricet as needed for headache RESP: Acute respiratory alkalosis with respiratory distress and hypoxia. COPD Was able to wean to nasal cannula. Chest x-ray negative for infiltrate and she has no wheeze. CTA shows no evidence of pulmonary embolism. DuoNeb every 6 hours. Albuterol every 2 hours as needed. CV: Monitor hemodynamics. She is normotensive. Lactic acid previously cleared. GI: Regular diet. FEN/RENAL: Acute kidney injury Monitor intake and output. Monitor electrolytes and replace as indicated LR with 20 mill equivalent of KCl per liter at 125 mL/h. Avoid nephrotoxins were possible. ID: Severe sepsis Acute uncomplicated pyelonephritis Gram-negative lorena bacteremia Although white blood cell count was down trending and lactic acid cleared she has persistent fever now 103 and appears to have ongoing sepsis.. She has gram-negative lorena bacteremia. Will check follow-up cultures. She has penicillin allergy reportedly with anaphylaxis and airway swelling. Will broaden antibiotic coverage to include meropenem dose for creatinine clearance of 38. Discontinue vancomycin in view of renal failure and current culture data. She received a dose of gentamicin 10/28 23:00 and trough is currently over 6, will hold. Infectious disease was previously consulted. We will follow-up recommendations. HEME: Thrombocytopenia ?secondary to sepsis. BLE to evaluate for consumption from DVT. CTPA negative. ENDO: Euglycemic PROPH: Pharmacologic DVT prophylaxis on hold due to thrombocytopenia. Protonix for stress ulcer prophylaxis. ACCESS: Peripheral IV providing adequate access at this time. Patient is critically ill with respiratory distress and severe sepsis. Currently respiratory status is improved and I suspect her respiratory distress was related to systemic effects of her sepsis without a primary respiratory etiology. Will observe in ICU for 24 hours and likely can be transferred out in the morning if stable. Patient updated at bedside. Discussed with Iván griffin, bedside RN, ISC propellant charge loader, family helper. Critical care time 60 minutes exclusive of separately billable procedures. Addendum: Patient reevaluated, remains critical. Blood pressure currently 70/40. Creatinine is 1.3. Additional fluid resuscitation with 2 L normal saline, continue maintenance fluids. Maintain Flores. Start Levophed infusion to keep map above 65 if not responding to the 2 liters boluses. May need central line placement. MDR E Coli in urine, continue meropenem. ID consult pending Additional CCT 32 MIN
[2017-10-29] MEDS ORDERED: Vancomycin Consult Pharmacy OTHER SCH (03:15)
[2017-10-29] MEDS ORDERED: Gentamicin Consult Pharmacy OTHER SCH (03:15)
[2017-10-29 03:48] LABS: Alanine Aminotransferase 46 U/L (10-53); Albumin 2.3 g/dL (3.4-5.0); Anion Gap 11 meq/L (5-15); Aspartate Aminotransferase 43 U/L (15-37); Blood Urea Nitrogen 15 mg/dL (7-18); Calcium 7.9 mg/dL (8.5-10.1); Carbon Dioxide 20.4 meq/L (21.0-32.0); Chloride 108 meq/L (98-107); Glomerular Filtration Rate 41 mL/min (>89); Glucose,Random 93 mg/dL (74-106); Potassium 3.2 meq/L (3.5-5.1); Sodium 139 meq/L (136-145)
[2017-10-29 03:50] LABS: Alkaline Phosphatase 153 U/L (45-117); Total Protein 6.6 g/dL (6.4-8.2)
--- NOTE | 2017-10-29 03:51 | CT ---
EXAM DATE: 10/29/2017 3:36 AM EDT AGE/SEX: 57 years / Female INDICATIONS: Chest pain, respiratory distress and tachycardia. CLINICAL DATA: This is the patient's initial encounter. Patient reports that signs and symptoms have been present for 1 day and indicates a pain score of 7/10. MEDICAL/SURGICAL HISTORY: Chronic obstructive pulmonary disease. Hypertension. None. RADIATION DOSE: 10.75 CTDI (mGy) COMPARISON: [facility] – [place], [place] ABDOMEN & PELVIS W/O CONTRAST, 10/27/2017. . TECHNIQUE: Volumetric scanning was performed using a multi-row detector CT scanner during bolus infu amrita of 60 ml Omnipaque 350 (iohexol) nonionic water-soluble contrast as a single exam dose. The anita a was post processed with a variety of visualization algorithms including full volume maximum intensi ty projection and sliding thin slab reformation. Using automated exposure control and adjustment of the mA and/or kV according to patient size, radiation dose was kept as low as reasonably achievable t o obtain optimal diagnostic quality images. DICOM format image data is available electronically for review and comparison. FINDINGS: There is no pulmonary embolus. No infiltrate, effusion or pneumothorax. Heart size within normal limits. There is coronary artery calcification, mostly left-sided. There is a small hiatal hernia. There is a lymph node adjacent to the distal esophagus and measures a pproximately 11 mm in greatest short axis dimension. Upper abdomen only partly included on the study. Hepatosplenomegaly again noted. CONCLUSION: 1. No pulmonary embolus or other acute cardiopulmonary disease demonstrated. 2. Upper limits of normal periesophageal lymph node. Small hiatal hernia. 3. Coronary artery calcification. 4. Hepatosplenomegaly. Electronically signed by: Evan Mtz MD 10/29/2017 3:50 AM EDT
--- NOTE | 2017-10-29 10:46 | US ---
EXAM DATE: 10/29/2017 10:40 AM EDT AGE/SEX: 57 years / Female INDICATIONS: Hematuria. CLINICAL DATA: This is the patient's initial encounter. Patient reports that signs and symptoms have been present for 1 day and indicates a pain score of 0/10. MEDICAL/SURGICAL HISTORY: Hypertension. Chronic obstructive pulmonary disease. GNR bacteremia. Urinary tract infection. Breast biopsy. Bowel diversion surgery. COMPARISON: [facility] – [place], CT ABDOMEN & PELVIS W/O CONTRAST, 10/27/2017. . MEASUREMENTS: Right Kidney:__15.3 x 7.2 x 7.1 cm Left Kidney:__16.1 x 7.7 x 7.7 cm FINDINGS: Right Kidney: Normal echotexture. No mass or hydronephrosis. Left Kidney: Normal echotexture. No mass or hydronephrosis. Bladder: Within normal limits given the degree of distension. Other: None. CONCLUSION: 1. Prominent kidneys bilaterally but otherwise no kidney abnormality is identified. There is no hydr onephrosis. 2. Urinary bladder demonstrates no abnormality. Electronically signed by: Evan Appiah MD 10/29/2017 10:45 AM EDT
--- NOTE | 2017-10-29 10:59 | US ---
EXAM DATE: 10/29/2017 10:32 AM EDT AGE/SEX: 57 years / Female INDICATIONS: Thrombosis. CLINICAL DATA: This is the patient's initial encounter. Patient reports that signs and symptoms have been present for 1 day and indicates a pain score of 0/10. MEDICAL/SURGICAL HISTORY: Chronic obstructive pulmonary disease. Hypertension. GNR bacteremia. Urinary tract infection. Breast biopsy. Bowel diversion surgery. COMPARISON: No prior exams available for comparison. TECHNIQUE: Venous ultrasound of both lower extremities was performed from the inguinal ligament to t he proximal calf. Real-time, color Doppler and spectral tracing, compression and augmentation techni ques were used. FINDINGS: Right Leg: Normal compression of the deep venous system from the inguinal region to the proximal gaurang f. No echogenic clot is seen. Normal response of the venous system to augmentation and respiration. Left Leg: Normal compression of the deep venous system from the inguinal region to the proximal calf . No echogenic clot is seen. Normal response of the venous system to augmentation and respiration. Other: None. CONCLUSION: 1. The study is negative for bilateral lower extremity deep venous thrombosis. Electronically signed by: Nicol Melendrez MD 10/29/2017 10:57 AM EDT
[2017-10-29] MEDS ORDERED: Sod Chloride 0.9% Inj 1,000 ML IV.SIG SCH (13:00)
--- NOTE | 2017-10-29 13:33 | MB ---
cc: Jarret Johnson MD DATE: 10/29/2017 REQUESTING PHYSICIAN: Dr. Adkins. REASON FOR CONSULTATION: Sepsis with urinary tract origin, SEVERE PENICILLIN ALLERGY. HISTORY OF PRESENT ILLNESS: This is a 57-year-old white female who was admitted to the hospital after 4 days of symptoms including nausea, vomiting, fever, chills, and headache. She also noted having some tingling with urination. The patient stayed home sick and not eating for 4 days and then saw her primary physician who sent her to the emergency department for evaluation. She also developed abdominal pain prior to coming to the emergency department. She had a temperature of 102.7 and white blood cell count was elevated at 20.6. Urine culture now has growth of Escherichia coli, multidrug resistant, and blood culture has gram-negative rods in all 4 bottles, obtained on 10/27/2017. SHE IS ALLERGIC TO PENICILLIN. She is currently on meropenem. She states that she still feels sick. She notes that she had decreased appetite over the last [address] scan of the abdomen and pelvis showed evidence of hepatosplenomegaly. No hydronephrosis. Midline anterior abdominal wall hernia containing mesenteric fat was also noted on the CAT scan. PAST MEDICAL HISTORY: COPD, hypertension, breast biopsy. PAST SURGICAL HISTORY: Significant for partial colectomy for diverticulitis. ALLERGIES: PENICILLIN, WHICH CAUSED ANAPHYLAXIS; OXYCODONE, NAPROXEN, MORPHINE, MEPERIDINE, HYDROMORPHONE, HYDROCODONE. MEDICATIONS: 1. Meropenem. 2. Protonix. 3. Kylie-Colace. SOCIAL HISTORY: No tobacco. The patient is a former smoker. No alcohol. No illicit drugs. FAMILY HISTORY: Noncontributory. REVIEW OF SYSTEMS: All systems has been reviewed and pertinents are mentioned in the history of present illness. Otherwise, negative. PHYSICAL EXAMINATION: GENERAL: She is an obese female who is in no acute distress. She looks somewhat fatigued. VITAL SIGNS: Include temperature 99.9, heart rate 76, respirations 18. HEENT: Head is atraumatic. Extraocular movements grossly intact. Pupils reactive to light. No icterus. Oropharynx moist mucosa without lesions. NECK: Supple without adenopathy. LUNGS: Decreased clear breath sounds. HEART: Regular S1, S2, without murmurs, rubs or gallops. ABDOMEN: Obese, soft. Palpable swelling at the mid abdomen around the umbilicus. Positive hepatomegaly. RECTAL: Not performed. EXTREMITIES: No clubbing, cyanosis or edema. SKIN: No rash. The skin is warm and slightly dry. NEUROLOGIC: No gross focal findings. PSYCHIATRIC: The patient is calm and cooperative. LABORATORY DATA: WBC 15.3, platelet count 65, hemoglobin 12.5, 88% neutrophils, 4% lymphocytes. Creatinine 1.32, BUN 15, estimated GFR 41, sodium 139. IMPRESSION: 1. Severe sepsis due to gram-negative bacteria. 2. Urinary tract infection due to Escherichia coli. 3. Chronic obstructive pulmonary disease. 4. Leukocytosis secondary to infection. 5. PENICILLIN ALLERGY. RECOMMENDATIONS: 1. Continue meropenem. 2. Monitor the blood culture identity and sensitivity of the gram-negative bacteria. 3. Monitor the white blood cell count. 4. Monitor the clinical status and antibiotics will be adjusted depending on the patient's response. Thank you for this consultation. The patient's progress will be monitored and further recommendations will be given upon followup. MD BK Linder/PETE , 12:50 PM , 01:32 PM
[2017-10-29] MEDS: Pantoprazole Sodium 20 MG DR Tablet PO SCH (13:37)
[2017-10-29] MEDS ORDERED: Sod Chloride 0.9% Inj 1,000 ML IV.CONT SCH (16:00)
[2017-10-29] MEDS ORDERED: Potassium Chloride Inj 20 MEQ in Sod Chloride 0.9% Inj 1,000 ML IV.CONT SCH (16:00)
--- NOTE | 2017-10-29 19:08 | ECG ---
Date Performed: 10/29/2017 Time Performed: 08:54:25 PTAGE: 57 years EKG: Sinus rhythm NORMAL ECG Compared to PREVIOUS TRACING , Sinus tachycardia no longer present PREVIOUS TRACIN10/27/2017 13.40 DOCTOR: Cassidy Sams Interpretating Date/Time 10/29/2017 19:07:45
[2017-10-30] MEDS: Butalbital/APAP/Caff 50/325/40 MG Tablet PO PRN (03:43)
[2017-10-30 06:41] LABS: Hematocrit 31.8 % (35.0-46.0); Hemoglobin 10.8 gm/dL (11.6-15.3); Mean Corpuscular HGB Conc 34.1 % (32.0-36.0); Mean Corpuscular Hemoglobin 31.7 pg (27.0-34.0); Mean Corpuscular Volume 92.9 fL (80.0-100.0); Mean Platelet Volume 9.3 fL (7.0-11.0); Platelet Count 82 th/mm3 (150-450); Red Blood Count 3.42 mil/mm3 (4.00-5.30); Red Cell Distribution Width 14.4 % (11.6-17.2); White Blood Count 8.1 th/mm3 (4.0-11.0)
[2017-10-30 07:12] LABS: Carbon Dioxide 20.2 meq/L (21.0-32.0); Potassium 3.3 meq/L (3.5-5.1)
[2017-10-30] MEDS: Senna/Docusate Sodium 8.6/50 MG Tablet PO SCH ×2 (09:31→20:33)
[2017-10-30] MEDS: Pantoprazole Sodium 20 MG DR Tablet PO SCH (09:31)
--- NOTE | 2017-10-30 10:59 | P.PNIM ---
Subjective Interval history: Patient feels better, still mildly short of breath but a lot better, afebrile. No nausea or vomiting. No diarrhea. Denies dysuria, suprapubic pain resolving. Physical Exam Vital signs: Vital Signs 10/29/17 12:00 10/29/17 15:56 10/29/17 16:00 Temperature 99.4 F 99.9 F H Pulse Rate 82 86 76 Respiratory Rate 20 20 24 Blood Pressure 118/65 110/55 L Pulse Oximetry 98 100 10/29/17 20:00 10/29/17 21:08 10/30/17 00:00 Temperature 100.0 F H 100.0 F H Pulse Rate 87 83 88 Respiratory Rate 24 20 26 H Blood Pressure 118/67 129/72 Pulse Oximetry 95 95 93 L 10/30/17 04:00 10/30/17 05:15 10/30/17 08:00 Temperature 99.3 F 98.9 F 98.8 F Pulse Rate 90 73 76 Respiratory Rate 25 H 18 18 Blood Pressure 141/67 H 131/77 127/81 Pulse Oximetry 94 L 97 76 L Intake & Output 10/29/17 10/30/17 10/30/17 18:59 06:59 18:59 Intake Total 1600 / 1600 2440 / 2440 Balance 1600 / 1600 2440 / 2440 Weight 117.3 kg Intake: IV 1000 / 1000 1959 KCl Inj 20 MEQ In LR 1000 mL 1000 / 1000 1959 Inj 1,000 ML @ 125 mls/hr IV. CONT .Q8H5M [facility] Rx#:[id number] Oral 480 / 480 Oral Supplement 600 / 600 Other: # Voids 3 1 Date of Last Bowel Movement 10/28/17 10/29/17 # Bowel Movements 0 Narrative: Not in distress Pupils equal round and reactive, pink conjunctivae Moist mucosa Regular rate and rhythm Clear breath sounds No suprapubic tenderness Trace edema Alert awake and oriented 3, no focal deficits. Results - Labs CBC & Chem 7: 10/30/17 04:34 10/30/17 04:34 Laboratory Results - last 24 hr 10/29/17 10/30/17 10/30/17 03:30 04:34 04:34 WBC 8.1 RBC 3.42 L Hgb 10.8 L Hct 31.8 L MCV 92.9 MCH 31.7 MCHC 34.1 RDW 14.4 Plt Count 82 L MPV 9.3 Sodium 141 Potassium 3.3 L Chloride 109 H Carbon Dioxide 20.2 L Anion Gap 12 BUN 14 Creatinine 1.01 H Estimated GFR 56 L Random Glucose 82 Calcium 8.0 L Nasal Screen MRSA (PCR) Not detected Microbiology 10/27/17 14:05 Blood - Peripheral Aerobic Blood Culture - Final Escherichia coli Multidrug Resistant 10/27/17 14:05 Blood - Peripheral Anaerobic Blood Culture - Final Escherichia coli Multidrug Resistant 10/27/17 14:00 Blood - Peripheral Aerobic Blood Culture - Final Escherichia coli Multidrug Resistant 10/27/17 14:00 Blood - Peripheral Anaerobic Blood Culture - Final Escherichia coli Multidrug Resistant 10/27/17 16:35 Clean Catch Urine Urine Culture - Final Escherichia coli Multidrug Resistant - Imaging Impressions Abdomen/Bladder Ultrasound 10/29/17 00:00 CONCLUSION: 1. Prominent kidneys bilaterally but otherwise no kidney abnormality is identified. There is no hydronephrosis. 2. Urinary bladder demonstrates no abnormality. Venous Doppler Study 10/29/17 09:08 CONCLUSION: 1. The study is negative for bilateral lower extremity deep venous thrombosis. Assessment and Plan - Assessment (1) Sepsis Code(s): A41.9 - Sepsis, unspecified organism Status: Acute (2) Gram-negative bacteremia Code(s): R78.81 - Bacteremia Status: Acute (3) COPD (chronic obstructive pulmonary disease) Code(s): J44.9 - Chronic obstructive pulmonary disease, unspecified Status: Acute (4) Acute UTI (urinary tract infection) Code(s): N39.0 - Urinary tract infection, site not specified Status: Acute - Plan This is a 57-year-old female with history of COPD, hypertension presenting with nausea, vomiting and dysuria, found to have a urinary tract infection. [facility] was called on 10/29/2017, patient was found to be in respiratory distress, workup was negative, patient was transferred to the hospitalist service. Acute respiratory alkalosis with respiratory distress and hypoxia-chest x-ray negative for infiltrates, CTA negative for PE, continue duo nebs as needed and [id number], continue oxygen support. Resolving. Severe sepsis secondary to acute uncomplicated pyelonephritis with E. coli bacteremia-blood culture grew E. coli multidrug resistant, and culture also growing the same E. coli strain. Sensitive to aztreonam, stop meropenem and gentamicin especially with kidney failure. Infectious disease input pending. Acute renal failure-continue LR, avoid nephrotoxins, monitor BMP. Improving. Headache-continue Fioricet as needed. Thrombocytopenia-likely secondary to sepsis, ultrasound negative for bilateral DVT. Repeat CBC tomorrow Hypokalemia-replaced, check magnesium Mild metabolic acidosis-continue LR, continue IVF Pharmacologic DVT prophylaxis on hold due to thrombocytopenia. Protonix for stress ulcer prophylaxis.
[2017-10-30] MEDS: Loratadine 10 MG Tablet PO SCH (20:33)
[2017-10-31 08:25] LABS: Baso # (Auto) 0.1 th/mm3 (0.0-0.2); Baso % (Auto) 0.7 % (0.0-2.0); Eos # (Auto) 0.2 th/mm3 (0.0-0.4); Eos % (Auto) 2.1 % (0.0-4.0); Hematocrit 30.9 % (35.0-46.0); Hemoglobin 10.6 gm/dL (11.6-15.3); Lymph # (Auto) 1.3 th/mm3 (1.0-4.8); Lymph % (Auto) 17.7 % (9.0-44.0); Mean Corpuscular HGB Conc 34.2 % (32.0-36.0); Mean Corpuscular Hemoglobin 31.7 pg (27.0-34.0); Mean Corpuscular Volume 92.8 fL (80.0-100.0); Mean Platelet Volume 9.1 fL (7.0-11.0); Mono % (Auto) 13.3 % (0.0-8.0); Neut % (Auto) 66.2 % (16.0-70.0); Platelet Count 108 th/mm3 (150-450); Red Blood Count 3.33 mil/mm3 (4.00-5.30); White Blood Count 7.6 th/mm3 (4.0-11.0)
[2017-10-31 08:48] LABS: Calcium 8.3 mg/dL (8.5-10.1); Carbon Dioxide 21.8 meq/L (21.0-32.0); Potassium 3.4 meq/L (3.5-5.1)
[2017-10-31] MEDS: Pantoprazole Sodium 20 MG DR Tablet PO SCH (09:34)
[2017-10-31] MEDS: Loratadine 10 MG Tablet PO SCH (09:34)
[2017-10-31] MEDS: Senna/Docusate Sodium 8.6/50 MG Tablet PO SCH ×2 (09:36→20:45)
[2017-10-31] MEDS ORDERED: Mag Sulf 1 gm/100 ml Premix 100 ML IV.SIG ONE (13:47)
--- NOTE | 2017-10-31 13:51 | P.PNIM ---
Subjective Interval history: No overnight events, afebrile. Kidney function is better. Tolerating diet. Patient's is good. No further suprapubic pain or dysuria. Physical Exam Vital signs: Vital Signs 10/30/17 15:43 10/30/17 16:00 10/30/17 20:00 Temperature 99 F 98.9 F Pulse Rate 72 75 87 Respiratory Rate 18 18 20 Blood Pressure 144/71 H 164/81 H Pulse Oximetry 96 96 10/30/17 21:24 10/30/17 22:00 10/30/17 22:48 Temperature Pulse Rate 87 75 Respiratory Rate 20 17 Blood Pressure Pulse Oximetry 10/31/17 00:00 10/31/17 03:20 10/31/17 04:00 Temperature 98.8 F 98.4 F Pulse Rate 79 73 73 Respiratory Rate 20 24 16 Blood Pressure 145/75 H 156/75 H Pulse Oximetry 95 94 L 10/31/17 08:51 10/31/17 12:00 Temperature 97.8 F Pulse Rate 73 82 Respiratory Rate 14 20 Blood Pressure 197/86 H Pulse Oximetry 96 Intake & Output 10/30/17 10/31/17 10/31/17 18:59 06:59 18:59 Intake Total 100 / 100 1690 / 1690 1250 / 1250 Output Total 200 / 200 Balance 100 / 100 1690 / 1690 1050 / 1050 Weight 117.3 kg Intake: IV 100 / 100 1210 / 1210 1010 / 1010 KCl Inj 20 MEQ In LR 1000 mL 1010 / 1010 1010 / 1010 Inj 1,000 ML @ 125 mls/hr IV. CONT .Q8H5M [facility] Rx#:[id number] Azactam Inj 1,000 MG In NS Inj 100 / 100 200 / 200 100 ML @ 200 mls/hr IV.SIG Q8H [facility] Rx#:[id number] Oral 480 / 480 240 / 240 Output: Urine 200 / 200 Other: # Voids 6 Date of Last Bowel Movement 10/30/17 10/31/17 # Bowel Movements 6 1 Narrative: Not in distress Pupils equal round and reactive, pink conjunctivae Moist mucosa Regular rate and rhythm Clear breath sounds No suprapubic tenderness Trace edema Alert awake and oriented 3, no focal deficits. Results - Labs CBC & Chem 7: 10/31/17 06:37 10/31/17 06:37 Laboratory Results - last 24 hr 10/31/17 10/31/17 10/31/17 06:37 06:37 06:37 WBC 7.6 RBC 3.33 L Hgb 10.6 L Hct 30.9 L MCV 92.8 MCH 31.7 MCHC 34.2 RDW 15.0 Plt Count 108 L D MPV 9.1 Neut % (Auto) 66.2 Lymph % (Auto) 17.7 Wagoner % (Auto) 13.3 H Eos % (Auto) 2.1 Baso % (Auto) 0.7 Neut # (Auto) 5.0 Lymph # (Auto) 1.3 Wagoner # (Auto) 1.0 H Eos # (Auto) 0.2 Baso # (Auto) 0.1 WBC Differential . Differential Comment Auto diff final Sodium 141 Potassium 3.4 L Chloride 109 H Carbon Dioxide 21.8 Anion Gap 10 BUN 12 Creatinine 0.88 Estimated GFR 66 L Random Glucose 79 Calcium 8.3 L Magnesium 1.5 Microbiology 10/29/17 02:55 Blood - Peripheral Aerobic Blood Culture - Preliminary No growth in 2 days 10/29/17 02:55 Blood - Peripheral Anaerobic Blood Culture - Preliminary No growth in 2 days 10/29/17 02:59 Blood - Peripheral Aerobic Blood Culture - Preliminary No growth in 2 days 10/29/17 02:59 Blood - Peripheral Anaerobic Blood Culture - Preliminary No growth in 2 days 10/27/17 14:05 Blood - Peripheral Aerobic Blood Culture - Final Escherichia coli Multidrug Resistant 10/27/17 14:05 Blood - Peripheral Anaerobic Blood Culture - Final Escherichia coli Multidrug Resistant 10/27/17 14:00 Blood - Peripheral Aerobic Blood Culture - Final Escherichia coli Multidrug Resistant 10/27/17 14:00 Blood - Peripheral Anaerobic Blood Culture - Final Escherichia coli Multidrug Resistant Assessment and Plan - Assessment (1) Sepsis Code(s): A41.9 - Sepsis, unspecified organism Status: Acute (2) Gram-negative bacteremia Code(s): R78.81 - Bacteremia Status: Acute (3) COPD (chronic obstructive pulmonary disease) Code(s): J44.9 - Chronic obstructive pulmonary disease, unspecified Status: Acute (4) Acute UTI (urinary tract infection) Code(s): N39.0 - Urinary tract infection, site not specified Status: Acute - Plan This is a 57-year-old female with history of COPD, hypertension presenting with nausea, vomiting and dysuria, found to have a urinary tract infection. [facility], patient was found to be in respiratory distress, workup was negative, patient was transferred to the hospitalist service. Acute respiratory alkalosis with respiratory distress and hypoxia-chest x-ray negative for infiltrates, CTA negative for PE, continue duo nebs as needed and [id number], continue oxygen support. Resolving. Severe sepsis secondary to acute uncomplicated pyelonephritis with E. coli bacteremia-blood culture grew E. coli multidrug resistant, and culture also growing the same E. coli strain. Sensitive to aztreonam and ciprofloxacin, was switched to his aztreonam, switch to oral ciprofloxacin now. Discussed with Dr. Gutierrez. Acute renal failure-creatinine back to normal, stop LR, avoid nephrotoxins, recheck BMP tomorrow. Headache-continue Fioricet as needed. Thrombocytopenia-likely secondary to sepsis, ultrasound negative for bilateral DVT. CBC stable. Hypokalemia-replaced today, Hypomagnesemia-replace, recheck tomorrow. Mild metabolic acidosis-resolved, stop IVF. Consult physical therapy and case management. Possible discharge with home health care tomorrow. Pharmacologic DVT prophylaxis on hold due to thrombocytopenia. Protonix for stress ulcer prophylaxis.
--- NOTE | 2017-10-31 13:52 | P.DCO ---
- Occupational Therapy Order: Evaluate and treat - Home Health Nursing Order: Nursing assessment with vital signs - Certification I have seen patient Kathy Alvarez on 10/31/17. My clinical findings support the need for the requested home health care services because: Limited mobility due to disease progression I certify that my clinical findings support that this patient is homebound because: Unsteady gait/balance
[2017-10-31] MEDS: Ciprofloxacin 500 MG Tablet PO SCH (20:45)
[2017-11-01 06:11] LABS: Calcium 8.1 mg/dL (8.5-10.1); Carbon Dioxide 23.3 meq/L (21.0-32.0); Magnesium 1.7 mg/dL (1.5-2.5)
[2017-11-01] MEDS: Butalbital/APAP/Caff 50/325/40 MG Tablet PO PRN (08:20)
[2017-11-01] MEDS: Ciprofloxacin 500 MG Tablet PO SCH (08:20)
[2017-11-01] MEDS: Pantoprazole Sodium 20 MG DR Tablet PO SCH (08:20)
[2017-11-01] MEDS: Loratadine 10 MG Tablet PO SCH (08:20)
[2017-11-01] MEDS: Senna/Docusate Sodium 8.6/50 MG Tablet PO SCH (08:21)
[2017-11-01 08:46] VITALS: RESP 12
[2017-11-01] MEDS ORDERED: Metoprolol Tartrate 25 MG Tablet PO SCH (09:00)
[2017-11-01 09:08] VITALS: BP 163/88; PULSE 79; TEMP 98.2; O2SAT 96
--- NOTE | 2017-11-01 09:11 | P.DS ---
Date of admission: 10/27/17 19:13 Primary care physician: UNKNOWN Attending physician on discharge: Sanford Xavier Anticipated date of discharge: 11/01/17 Brief History from admission: 57-year-old female with a past medical history significant for COPD and hypertension presents the emergency department with a 3 day history of abdominal pain, nausea/vomiting, fever, headache and tingling with urination. The patient reports that her symptoms worsened in severity to the point where she felt as if she needed to be seen in the emergency department. She denies any chest pain or shortness of breath. No lateralizing signs/symptoms. DS: Diagnosis - Discharge Diagnosis (1) Acute UTI (urinary tract infection) Status: Acute (2) Severe sepsis Status: Acute (3) Gram-negative bacteremia Status: Acute (4) COPD (chronic obstructive pulmonary disease) Status: Acute DS: Medications - Discharge Medications Prescriptions: [id number] 1 tab PO Q6H PRN #7 tab PRN Reason: Headache ciprofloxacin HCl 500 mg PO Q12HR #20 tab loratadine 10 mg PO DAILY #30 tab DS: Summary Hospital Course: 57-year-old female with a past medical history significant for COPD and hypertension presents the emergency department with a 3 day history of abdominal pain, nausea/vomiting, fever, headache and tingling with urination. The patient reports that her symptoms worsened in severity to the point where she felt as if she needed to be seen in the emergency department. Patient was admitted and treated for acute respiratory alkalosis with hypoxemia, no infiltrate on x-ray, no PE found, respiratory symptoms improved now on room air. Treated for severe sepsis secondary to acute uncomplicated pyelonephritis with E. coli bacteremia-blood culture grew E. coli multidrug resistant, and culture also growing the same E. coli strain. Treated with aztreonam, later switched to PO ciprofloxacin. She also had OLGA which resolved with IV hydration. Electrolytes corrected and BMP on morning of DC stable. Patient is seen and examined sitting up in bed and in no acute distress. Reports she is doing well. Denies any fevers, chills, nausea, vomiting, diarrhea, cough, shortness of breath, dysuria, or back pain. Patient with complaints of migraine headache this morning, has taken something for headache already, denies any visual changes or dizziness. She reports that she normally takes metoprolol 25 mg twice a day at home for BP control, this has been restarted this morning. She does not report any other acute concerns or complaints at this moment, she reports she does not need any kind of home health as she has her at home who can assist her. - Time Spent with Patient Total time spent providing and/or coordinating discharge services: Exam Vital signs: Vital Signs 10/31/17 12:00 10/31/17 16:00 10/31/17 16:30 Temperature 36.6 C 37.0 C Pulse Rate 82 70 82 Respiratory Rate 20 20 20 Blood Pressure 197/86 H 161/88 H Pulse Oximetry 96 96 10/31/17 19:29 10/31/17 20:00 10/31/17 23:33 Temperature 37.2 C Pulse Rate 82 95 H Respiratory Rate 20 18 18 Blood Pressure 156/90 H Pulse Oximetry 96 95 11/01/17 00:00 11/01/17 03:58 11/01/17 08:00 Temperature 37.4 C 36.8 C Pulse Rate 73 71 73 Respiratory Rate 20 17 24 Blood Pressure 164/79 H 163/88 H Pulse Oximetry 96 94 L 11/01/17 09:08 Temperature Pulse Rate 79 Respiratory Rate 12 Blood Pressure Pulse Oximetry 96 Intake & Output 10/31/17 11/01/17 11/01/17 18:59 06:59 18:59 Intake Total 1450 / 1450 Output Total 200 / 200 Balance 1250 / 1250 Weight 117.4 kg Intake: IV 1210 / 1210 KCl Inj 20 MEQ In LR 1000 mL 1010 / 1010 Inj 1,000 ML @ 125 mls/hr IV. CONT .Q8H5M [facility] Rx#:[id number] Azactam Inj 1,000 MG In NS Inj 100 / 100 100 ML @ 200 mls/hr IV.SIG Q8H [facility] Rx#:[id number] Magnesium Sulfate 1 gm/D5W 100 100 / 100 ml Premix 100 ML @ 100 mls/hr IV.SIG ONCE ONE Rx#:[id number] Oral 240 / 240 Output: Urine 200 / 200 Other: Date of Last Bowel Movement 10/31/17 # Bowel Movements 1 Narrative: GENERAL: Female resting in bed in no acute distress. SKIN: Warm and dry. EYES: Pupils equal and round. No scleral icterus. No injection or drainage. ENT: No nasal bleeding or discharge. Mucous membranes pink and moist. NECK: Trachea midline. No JVD. CARDIOVASCULAR: Regular rate and rhythm. RESPIRATORY: No accessory muscle use. Clear to auscultation. Breath sounds equal bilaterally. MUSCULOSKELETAL: Extremities without clubbing, cyanosis, or edema. NEUROLOGICAL: Awake and alert. No obvious cranial nerve deficits. Motor grossly within normal limits. Normal speech. Results Procedures completed during hospitalization: None Labs on day of discharge: Labs from last 24 hours 11/01/17 10/31/17 04:13 06:37 Sodium 140 Potassium 4.0 Chloride 109 H Carbon Dioxide 23.3 Anion Gap 8 BUN 11 Creatinine 0.86 Estimated GFR 68 L Random Glucose 87 Calcium 8.1 L Magnesium 1.7 1.5 Preliminary micro results at discharge 10/29/17 02:55 Aerobic Blood Culture - Preliminary Blood - Peripheral No growth in 2 days Anaerobic Blood Culture - Preliminary No growth in 2 days 10/29/17 02:59 Aerobic Blood Culture - Preliminary Blood - Peripheral No growth in 2 days Anaerobic Blood Culture - Preliminary No growth in 2 days - Impressions ITS Impressions Abdomen/Pelvis CT 10/27/17 13:53 CONCLUSION: 1. There is evidence of hepatosplenomegaly. 2. Mild nonspecific perinephric edema surrounding both kidneys. No hydronephrosis or calcified renal stones. 3. Midline anterior abdominal wall hernia containing mesenteric fat. 4. A few nonspecific mildly prominent para-aortic lymph nodes. Abdomen/Bladder Ultrasound 10/29/17 00:00 CONCLUSION: 1. Prominent kidneys bilaterally but otherwise no kidney abnormality is identified. There is no hydronephrosis. 2. Urinary bladder demonstrates no abnormality. Chest CTA 10/29/17 00:00 CONCLUSION: 1. No pulmonary embolus or other acute cardiopulmonary disease demonstrated. 2. Upper limits of normal periesophageal lymph node. Small hiatal hernia. 3. Coronary artery calcification. 4. Hepatosplenomegaly. Chest X-Ray 10/29/17 01:28 CONCLUSION: No evidence of acute cardiopulmonary disease. Venous Doppler Study 10/29/17 09:08 CONCLUSION: 1. The study is negative for bilateral lower extremity deep venous thrombosis. - Additional Comments Patient was provided with prescription for Fioricet 50-325-40, #7 tabs. [employer] was checked with no record of controlled substance filling in system. Discharge Plan - Discharge Disposition Patient Disposition: Discharge Home - Discharge Condition Condition: Fair - Discharge Order Discharge Orders: Discharge Order (Routine); Ordered 11/01/17 Ordered By: Johnna Upton - Discharge Details Anticipated Discharge Date: 11/01/17 - Physicians Team Primary Care Provider: UNKNOWN, Attending Provider: Sanford Xavier Other Providers: Nataly Ingram ; Jarret Johnson MD ; Ifeoma Gleason MD
== END 2017-11-01 11:30 | disposition home or self-care (01) ==
LOC: NEPC 13:06 → NEDA 19:13 → N07 20:45 → N03 10-29 01:51 → N06 10-30 04:50
PROVIDERS: ADMIT Family Medicine; ATTEND Family Medicine
DX: Z88.5 Allergy status to narcotic agent; Z88.0 Allergy status to penicillin; K43.9 Ventral hernia without obstruction or gangrene; I10 Essential (primary) hypertension; J44.9 Chronic obstructive pulmonary disease, unspecified; R06.03 Acute respiratory distress; R16.2 Hepatomegaly with splenomegaly, not elsewhere classified; N12 Tubulo-interstitial nephritis, not specified as acute or chronic; I16.0 Hypertensive urgency; Z87.891 Personal history of nicotine dependence; R65.20 Severe sepsis without septic shock; N17.9 Acute kidney failure, unspecified; E87.6 Hypokalemia; Z16.24 Resistance to multiple antibiotics; E83.42 Hypomagnesemia; E87.4 Mixed disorder of acid-base balance; R09.02 Hypoxemia; D69.59 Other secondary thrombocytopenia; A41.51 Sepsis due to Escherichia coli [E. coli]